=== PATIENT | female | born 1990 | race Caucasian/White ===

== ENCOUNTER → 2024-02-25 13:50 | Outpatient (BNVA) | payer BC, MEDICAID, SELFPAY | DX: Z76.89 Persons encountering health services in other specified circumstances (principal) | CPT/HCPCS: 80053; 83690; 84439; 84443; 85025 ==

== ENCOUNTER 2024-02-26 12:59 | Outpatient (CLI) | payer BC, MEDICAID, SELFPAY | END 2024-02-26 13:00 | disposition home or self-care (01) | LOC: LAB 13:01 | DX: R19.7 Diarrhea, unspecified (principal) | CPT/HCPCS: 87045; 87427; 87449 ==

== ENCOUNTER 2024-04-17 10:29 | Outpatient (CLI) | payer BC, MEDICAID, SELFPAY ==
--- NOTE | 2024-04-17 10:34 | XR_ITS ---
WS: [id number] XR lumbar spine 2-3V* [id number] REASON FOR EXAM: joint pain FINDINGS: Normal lumbar spine curvatures. No vertebral body abnormality. Intervertebral disc spaces are intact and relatively well preserved. No significant listhesis. Facet joints are unremarkable. Sacroiliac joints appear normal. XR/XR lumbar spine 2-3V* [id number] IMPRESSION: No significant abnormality.
--- NOTE | 2024-04-17 10:34 | XR_ITS ---
WS: [id number] XR shoulder RT min 2V* [id number] REASON FOR EXAM: joint pain FINDINGS: Old healed fracture of the distal right clavicle. No acute fracture or focal bone lesion. Acromioclavicular joint is intact with mild subchondral sclerosis and osteophytosis. Glenohumeral joint is intact and relatively well preserved. 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
--- NOTE | 2024-04-17 10:34 | XR_ITS ---
WS: [id number] XR cervical spine 3V* [id number] REASON FOR EXAM: joint pain FINDINGS: Mild reversal of the normal cervical lordosis. No abnormality of the odontoid or vertebral bodies. Intervertebral disc spaces are intact and well preserved. No significant listhesis. XR/XR cervical spine 3V* [id number] IMPRESSION: Abnormal thoracic spine curvature which may be related to muscle spasm.
[2024-04-17 10:59] LABS: Erythrocyte Sedimentation Rate 2 mm/hr (0-15)
[2024-04-18 13:04] LABS: COMPLEMENT COMPONENT C3C 113 mg/dL (83-193); COMPLEMENT COMPONENT C4C 17 mg/dL (15-57)
[2024-04-18 15:14] LABS: Cyclic Citrullinated Peptide <16 UNITS
[2024-04-18 18:24] LABS: CENTROMERE B ANTIBODY <1.0 NEG AI (<1.0 NEG); JO-1 ANTIBODY <1.0 NEG AI (<1.0 NEG); RNP ANTIBODY <1.0 NEG AI (<1.0 NEG); SCL-70 ANTIBODY <1.0 NEG AI (<1.0 NEG); SJOGREN'S ANTIBODY (SS-A) <1.0 NEG AI (<1.0 NEG); SM ANTIBODY <1.0 NEG AI (<1.0 NEG); SS-B <1.0 NEG AI (<1.0 NEG)
[2024-04-19 08:36] LABS: THYROID PEROXIDASE ANTIBODIES 2 IU/mL (<9)
[2024-04-19 12:25] LABS: ANA SCREEN, IFA NEGATIVE (NEGATIVE)
[2024-04-19 15:18] LABS: COMPLEMENT, TOTAL (CH50) 39 U/mL (31-60)
== END 2024-04-17 10:30 | disposition home or self-care (01) ==
LOC: LAB 10:31
DX: M41.34 Thoracogenic scoliosis, thoracic region (principal); M25.511 Pain in right shoulder
CPT/HCPCS: 36415; 72040; 72100; 73030; 85651; 86140; 86160; 86162; 86200; 86235; 86255; 86376; 86431

== ENCOUNTER 2024-05-26 07:56 | Outpatient (CLI) | payer BC, MEDICAID, SELFPAY ==
--- NOTE | 2024-05-26 08:00 | US_ITS ---
WS: [id number] RIGHT UPPER QUADRANT ULTRASOUND HISTORY: abd pain and bloating COMPARISON: None available. Liver: 15.0 cm in length. Normal size liver and echogenicity. No bile duct dilatation or mass. Portal Vein: Normal hepatopetal flow with monophasic waveform. Gallbladder: Normally distended gallbladder with no stones or wall thickening. CBD: 0.3 cm Pancreas: Normal size and echogenicity. Right kidney: 10.5 cm in length. Normal size and echogenicity. No hydronephrosis or mass. Aorta and IVC: Unremarkable abdominal aorta and IVC. No ascites. US/US gall bladder [id number] IMPRESSION: Normal right upper quadrant ultrasound.
== END 2024-05-26 07:57 | disposition home or self-care (01) ==
LOC: RAD 07:56
DX: R14.0 Abdominal distension (gaseous) (principal)
CPT/HCPCS: 76705

== ENCOUNTER → 2024-07-05 11:09 | Outpatient (BNVA) | payer BC, MEDICAID, SELFPAY | PROVIDERS: Visit Provider Nurse Practitioner Women's Health | DX: Z01.419 Encounter for gynecological examination (general) (routine) without abnormal findings (principal) | CPT/HCPCS: 81000; 87086; 87624 ==

== ENCOUNTER → 2024-08-14 11:45 | Outpatient (BNVA) | payer BC, SELFPAY | PROVIDERS: Visit Provider Internal Medicine Rheumatology | DX: Z79.899 Other long term (current) drug therapy (principal); Z76.89 Persons encountering health services in other specified circumstances; M25.50 Pain in unspecified joint | CPT/HCPCS: 36415; 82565; 85025; 85651; 86140; 86480; 86704; 86803; 86812; 87340 ==

== ENCOUNTER 2024-10-03 11:11 | Day surgery (SDC) | payer MEDICAID, SELFPAY ==
--- NOTE | 2024-10-03 10:40 | P.ANESASSM_ITS ---
Pre-Anesthetic Assessment Height/Weight: Height 1.73 m Preop Diagnosis: GERD, Bloating Operation Date: 10/03/24 12:15 Proposed Procedures p EGD 79412 R12 R14.0(Not Applicable) - Morgan Glez MD Familial anesthetic complications: none Was Beta Reg taken within 24 hours: N/A Was Clonidine taken within 24 hours: N/A Social No alcohol and No tobacco Exam alert, oriented x 3, clear to auscultation bilaterally and regular rate & rhythm Airway Cervical ROM: within normal limits Mallampati: Class II Dentition: full History/ROS No significant history except as noted Pulmonary Asthma Used own albuterol inhaler preop x2 puffs CV/HEM None reported None reported Hepatic None reported GI Gastroesophageal Reflux Disease Metabolic None reported Musc/skel None reported Neuropsych Anxiety Anesthetic Plan ASA status: 2 Anesthesia: MAC Risk of > 500 ml blood loss (7ml/kg in children): No Medications/Allergies Home Medications ?Medication ?Instructions ?Recorded ?Confirmed ?Last Taken ?Type pantoprazole 40 mg tablet,delayed 40 mg PO DAILY #30 t abs 08/25/24 09/28/24 10/02/24 Rx release citalopram 10 mg tablet (Celexa) 10 mg PO DAILY #90 ta bs 09/15/24 09/28/24 10/02/24 Rx Allergies Allergy/AdvReac Type Severity Reaction Status Date / Time Alpha-Gal Allergy ALGY-Anaphy Verified 10/03/24 11:22 (Foevcvrzx-Vdrtt-9,3-Gala laxis Penicillins Allergy HIVES Verified 09/28/24 08:27 Sulfa (Sulfonamide Allergy HIVES Verified 09/28/24 08:27 Antibiotics) C clor Allergy HIVES Uncoded 09/28/24 08:27 [facility] Anesthesia Medical History Immunization counseling High risk medication use Polyarthralgia Inflammatory back pain Dysphagia Anxiety with depression Psychiatric care Rheumatoid factor positive Joint pain Diarrhea Encounter to establish care Abdominal bloating Family History Mother Asthma Father Colon cancer, Onset Age: 48 Stage 4 Diabetes Grandfather Hypertension Social History Smoking and tobacco/nicotine status: current every day tobacco/nicotine user (T HC) Substance/Drug Use: current Adopted: No Female Reproductive History Date of last menstrual period: 09/13/24 Data Anesthesia Cardiac Studies: No Data to Display
--- NOTE | 2024-10-03 10:57 | W.PM.OPSUD ---
Surgery/Procedure H&P Update DATE OF PROCEDURE: October 03, 2024 DATE H&P PERFORMED: 09/14/24 H&P UPDATE INFORMATION: I have reviewed H&P completed within last 30 days, I have examined patient prior to procedure and No changes to prior documentation PREOP DIAGNOSIS: GERD, Bloating PLANNED PROCEDURE: Operation Date: 10/03/24 12:15 Proposed Procedures p EGD 52211 R12 R14.0(Not Applicable) - Morgan Glez MD
[2024-10-03 11:19] VITALS: BMI 22.8
[2024-10-03] MEDS: sodium chloride 0.9% 250 ML 30 ML IV (11:24)
[2024-10-03 11:40] VITALS: BP 99/59; PULSE 76; RESP 16; TEMP 36.8; O2SAT 98
[2024-10-03 11:54] VITALS: BP 92/57; PULSE 82; RESP 16; O2SAT 95
[2024-10-03 11:54] LABS: OR HCG Qualitative Urine Negative (Negative)
[2024-10-03 12:07] VITALS: BP 94/60; PULSE 80; RESP 16; O2SAT 96
--- NOTE | 2024-10-03 12:09 | ANE.PACU2 ---
Inpatient post-anesthesia follow up: Airway intact: Yes Vital signs: Temperature 98.2 F Pulse Rate 80 Respiratory Rate 16 Blood Pressure 94/60 Pulse Oximetry 96 Oxygen Delivery Me thod Room Air Oxygen Flow Rate Fraction of Inspir ed Oxygen Hydration adequate: Yes Nausea and vomiting: No Pain level: 1 Mental status: Baseline
== END 2024-10-03 12:09 | disposition home or self-care (01) ==
PROVIDERS: Student in an Organized Health Care Education/Training Program; PCP Family Medicine; Visit Provider Student in an Organized Health Care Education/Training Program
PROC: 0DJ08ZZ Inspection of Upper Intestinal Tract, Via Natural or Artificial Opening Endoscopic (ICD-10-PCS; principal; 2024-10-03 12:15)
DX: K29.50 Unspecified chronic gastritis without bleeding (principal); K21.9 Gastro-esophageal reflux disease without esophagitis; Z79.899 Other long term (current) drug therapy; Z88.0 Allergy status to penicillin; Z88.8 Allergy status to other drugs, medicaments and biological substances; Z88.2 Allergy status to sulfonamides
CPT/HCPCS: 43239; 81025; 88305; 88342; J2704; J7050

== ENCOUNTER 2024-11-20 15:44 | Outpatient (CLI) | payer MEDICAID, SELFPAY | END 2024-11-20 15:45 | disposition home or self-care (01) | LOC: LAB 11-22 06:13 | PROVIDERS: Visit Provider Internal Medicine Rheumatology | DX: Z79.899 Other long term (current) drug therapy (principal) | CPT/HCPCS: 36415; 80076; 82565; 85025; 85651; 86140 ==